=== PATIENT | female | born 1970 | race Caucasian/White ===

== ENCOUNTER → 2018-09-09 | Outpatient (CLI) | payer OTHER ==
--- NOTE | 2018-09-09 09:32 | RAD ---
EXAM: Abdomen sonogram. HISTORY: Abnormal LFTs. TECHNIQUE: Sonographic imaging of the abdomen was performed. COMPARISON: None. FINDINGS: The liver is normal in size. No focal hepatic lesion is seen. The liver parenchyma is slightly echogenic, suggesting hepatic steatosis. The gallbladder is unremarkable. The common bile duct is normal in caliber. The pancreas, right kidney and inferior vena cava are unremarkable. The aorta is not assessed. IMPRESSION: 1. Slightly echogenic liver parenchyma. This suggests slight hepatic steatosis. 2. Otherwise, unremarkable abdomen sonogram. Electronically signed by: Gracie Josue MD (09/09/2018 9:29 AM) [id number]
== END | disposition home or self-care (01) ==
LOC: US 15:09
PROVIDERS: ATTEND Internal Medicine Gastroenterology
DX: R94.5 Abnormal results of liver function studies (principal)
CPT/HCPCS: 76705